=== PATIENT | female | born 1955 | race Caucasian/White ===

== ENCOUNTER → 2017-02-03 | Outpatient (CLI) | payer OTHER ==
[2016-01-24 11:45] VITALS: BP 136/80
[~2017-02-03] MED LIST: ACET325T9 PO; CHOL2000 PO; LACT1CAP25 PO; MELO15TA23 PO; RANI150C PO
--- NOTE | 2017-02-03 15:56 | KCIC ---
Indication: Cough. Time of exam 3:38 PM No prior studies are available for comparison. The heart size is normal. There is some linear scarring in the right lung base. No infiltrate is identified. No effusion or pneumothorax is seen. IMPRESSION: No acute cardiopulmonary process is detected. Electronically signed by: Reinier Garduno MD (02/03/2017 3:53 PM) [id number]
== END | disposition home or self-care (01) ==
LOC: KCIC 15:52
DX: R05 Cough (principal)
CPT/HCPCS: 71020

== ENCOUNTER → 2018-05-07 | Outpatient (CLI) | payer OTHER ==
[2016-01-24 11:45] VITALS: BP 136/80
[~2018-05-07] MED LIST changes: +GADOBUTROL 7.5 MMOL/7.5 ML VIAL INT ART ONE; +IOHEXOL 300 MG/ML 50 ML VIAL. INT ART ONE; +LIDOCAINE 1% Multi-Dose 20 ML VIAL. ID ONE
--- NOTE | 2018-05-07 15:58 | KCIC ---
MR arthrogram of the right shoulder Indication: Right shoulder pain and instability. Technique: Intra-articular contrast injected into the glenohumeral joint and is reported separately. Routine 4 plane sequences were obtained, including ABER positioning. FINDINGS: Artifact: Mild motion degradation. Acromioclavicular joint: Mildly degenerative. Rotator cuff: * Supraspinatus-infraspinatus tendon: Complete full-thickness rupture of the anterior supraspinatus tendon measures about 2 cm AP diameter. Deep undersurface tearing, greater than 80%, through the more posterior rotator cuff, extending to the critical zone. Undersurface fibers are retracted 2.5 cm. * Subscapularis tendon: Partial tear. * Muscle bulk: Mild/moderate atrophy with volume loss greater at the supraspinatus. * Subacromial subdeltoid bursa: Contrast enters the bursa. Articular cartilage: Primary osteoarthritis with severe chondral thinning. Labrum: Diffuse labral degeneration, degenerative tearing at the superior labrum. Biceps tendon: Tendinosis with partial tearing. Medial subluxation, perched over the lesser tuberosity. Bones: No lesion or acute fracture. Soft tissue: No acute findings. Impression: 1. Moderate full-thickness retracted rotator cuff tear of the supraspinatus tendon, partial tear of the remaining rotator cuff. 2. Primary osteoarthritis. 3. Labral degeneration with a superior labral tear. 4. Biceps tendinosis with medial subluxation. Electronically signed by: Aftab Carrillo MD (05/07/2018 3:54 PM) [id number]
--- NOTE | 2018-05-07 16:29 | KCIC ---
PROCEDURE: Right shoulder injection using fluoroscopic guidance, prior to MR. HISTORY: Shoulder pain. TECHNIQUE: The procedure was explained to the patient as were potential risks, including among others infection, bleeding or allergic reaction. All questions were answered. Informed written and verbal consent was obtained. The shoulder was prepped and draped in the usual sterile manner. Following administration of local anesthetic, a 22-gauge needle was advanced into the anterior shoulder. Following negative aspiration, 12 cc of a solution of 5cc Omnipaque-300 contrast, 5 cc 1% lidocaine, 10 cc normal saline, and 0.1 cc gadolinium was injected without difficulty. The needle was removed. There was good hemostasis at the injection site. The patient left in stable condition without immediate complication. A single spot image is obtained. FLUOROSCOPY TIME:?23 seconds Electronically signed by: Aftab Carrillo MD (05/07/2018 4:25 PM) [id number]
== END | disposition home or self-care (01) ==
LOC: KCIC 12:36
PROVIDERS: ATTEND Family Medicine
DX: M19.011 Primary osteoarthritis, right shoulder (principal); M25.311 Other instability, right shoulder; M75.21 Bicipital tendinitis, right shoulder; M24.111 Other articular cartilage disorders, right shoulder; M75.121 Complete rotator cuff tear or rupture of right shoulder, not specified as traumatic; Z88.2 Allergy status to sulfonamides
CPT/HCPCS: 23350; 73040; 73222; A9585; Q9967; 77002

== ENCOUNTER → 2019-06-07 | Outpatient (CLI) | payer OTHER ==
[2016-01-24 11:45] VITALS: BP 136/80
[~2019-06-07] MED LIST changes: -GADOBUTROL 7.5 MMOL/7.5 ML VIAL INT ART ONE; -IOHEXOL 300 MG/ML 50 ML VIAL. INT ART ONE; -LIDOCAINE 1% Multi-Dose 20 ML VIAL. ID ONE
--- NOTE | 2019-06-08 12:07 | KCIC ---
Bilateral digital screening mammograms Reason for examination: Routine screening. New baseline mammogram. Comparisons: No priors. The current exam will serve as a new baseline. Routine CC and MLO digital views obtained. Interpretation was made with the benefit of CAD. The skin and nipples show no abnormalities. No abnormal lymph nodes are seen. The breast parenchyma is predominantly fatty. (Breast density: Category A.) There are no spiculated masses, suspicious calcifications or architectural distortions. Very small right outer posterior breast intramammary lymph node. At the left slightly lower breast 6:00 position 5 cm from the nipple there is a focal nodular asymmetry on both the CC and MLO views. Separately at the right upper outer breast 10:00 position 4 cm from the nipple there is a small focal nodular asymmetry on both the CC and MLO views. Impression: Small nodular asymmetries of both breasts as described above. Further evaluation with bilateral breast ultrasound is advised. BI-RADS Category 0: Incomplete examination. "Our facility is accredited by the [employer] Mammography Program." This patient's information has been entered into a reminder system for the patient to be notified with the results of her examination and a target date for the next mammogram. Electronically signed by: Juni Fuentes MD (06/08/2019 12:04 PM) [id number]
== END | disposition home or self-care (01) ==
LOC: KCIC MAMMO 12:28
PROVIDERS: ATTEND Family Medicine
DX: Z12.31 Encounter for screening mammogram for malignant neoplasm of breast (principal)
CPT/HCPCS: 77067